=== PATIENT | male | born 1945 | race Two or more races ===

== ENCOUNTER 2016-10-13 21:41 | Emergency (ER) | payer MEDICARE ==
[~2016-10-13] VITALS: Ht 165.1 cm; Wt 70.4 kg
[~2016-10-13 21:41] MED LIST: AMOX-291 PO; ASPI-650 PO; ATOR40TA78 PO; CARB1TAB22 PO; FAMO-79 PO; TERA10CA3 PO
[2016-10-13 23:29] LABS: ASPARTATE AMINO TRANSFERASE 24 U/L (15-37); BLOOD UREA NITROGEN 12 mg/dL (7-18)
[2016-10-14 00:46] VITALS: BP 120/68
== END 2016-10-14 00:47 | disposition home or self-care (01) ==
LOC: ED 23:59
DX: R30.0 Dysuria (principal); I10 Essential (primary) hypertension; E78.5 Hyperlipidemia, unspecified; G20 Parkinson's disease; I63.9 Cerebral infarction, unspecified
CPT/HCPCS: 36415; 80053; 81001; 82962; 85025; 93005

== ENCOUNTER 2017-09-25 18:27 | Inpatient (IN) | payer MEDICARE ==
[~2017-09-25] VITALS: Ht 165.1 cm; Wt 67.0 kg
[2017-09-25 19:45] LABS: BASOPHILS # (AUTO) 0.01 x10^3/uL (0-0.1); BASOPHILS % (AUTO) 0 % (0-1); EOSINOPHILS # (AUTO) 0.23 x10^3/uL (0-0.4); EOSINOPHILS % (AUTO) 5 % (1-7); LYMPHOCYTES # (AUTO) 1.13 x10^3/uL (1-3.4); LYMPHOCYTES % (AUTO) 24 % (22-44); MD NO; MEAN CORPUSCULAR HEMOGLOBIN 34.1 pg (27.5-34.5); MEAN CORPUSCULAR HGB CONC 33.8 g/dL (33.2-36.2); MEAN CORPUSCULAR VOLUME 100.9 fL (81-97); MEAN PLATELET VOLUME 8.8 fL (7.4-10.4); MONOCYTES # (AUTO) 0.35 x10^3/uL (0.2-0.8); MONOCYTES % (AUTO) 8 % (2-9); NEUTROPHILS # (AUTO) 2.96 x10^3/uL (1.8-6.8); NEUTROPHILS % (AUTO) 63 % (42-75); PLATELET COUNT 156 x10^3/uL (130-400); RED BLOOD COUNT 3.83 x10^6/uL (4.38-5.82); RED CELL DISTRIBUTION WIDTH 12.9 % (9.4-14.8)
[2017-09-25 19:56] LABS: ALANINE AMINOTRANSFERASE 14 U/L (12-78); ALBUMIN 3.7 g/dL (3.4-5.0); ANION GAP 8 mmol/L (5-15); CALCIUM 8.4 mg/dL (8.5-10.1); CHLORIDE 104 mmol/L (98-107)
[2017-09-25] MEDS ORDERED: METHYLNALTREXONE 12 MG/0.6 ML SQ ONE ×2 (19:57→20:00)
[2017-09-25 19:59] LABS: ALKALINE PHOSPHATASE 85 U/L (45-117); BILIRUBIN,TOTAL 0.6 mg/dL (0.2-1.0); CREATININE 0.98 mg/dL (0.7-1.3); TOTAL PROTEIN 6.7 g/dL (6.4-8.2)
[2017-09-25] MEDS ORDERED: OMNIPAQUE 350 MG/ML, 100ML BOTTLE ONE (23:07)
[2017-09-26] MEDS ORDERED: ONDANSETRON 2MG/ML, 2ML IVPush PRN (00:30)
[2017-09-26] MEDS ORDERED: ACETAMINOPHEN 325 MG TABLET PO PRN (00:30)
[2017-09-26] MEDS: TERAZOSIN 5MG CAPSULE PO SCH ×3 (00:30→22:01)
[2017-09-26] MEDS: BISACODYL 10 MG SUPP PR SCH ×3 (00:45→09:03)
[2017-09-26] MEDS: ATORVASTATIN 40 MG TABLET PO SCH ×3 (01:03→22:01)
[2017-09-26] MEDS: CARBIDOPA/LEVODOPA 25 MG/100 MG TABLET PO SCH ×7 (01:03→22:01)
[2017-09-26 01:08] LABS: FOLATE LEVEL 13.8 ng/mL (3.1-17.5)
[2017-09-26 01:20] VITALS: BP 128/86
[2017-09-26] MEDS: SODIUM CHLORIDE 0.9% 1,000 ML IV SCH ×3 (01:40→22:02)
[2017-09-26] MEDS ORDERED: MELA5CAP PO (02:04)
[2017-09-26] MEDS: MELATONIN 5 MG TABLET PO SCH ×2 (03:52→22:01)
[2017-09-26 05:08] LABS: BASOPHILS # (AUTO) 0.02 x10^3/uL (0-0.1); BASOPHILS % (AUTO) 0 % (0-1); EOSINOPHILS # (AUTO) 0.17 x10^3/uL (0-0.4); EOSINOPHILS % (AUTO) 4 % (1-7); LYMPHOCYTES # (AUTO) 0.87 x10^3/uL (1-3.4); LYMPHOCYTES % (AUTO) 18 % (22-44); MD NO; MEAN CORPUSCULAR HEMOGLOBIN 33.8 pg (27.5-34.5); MEAN CORPUSCULAR HGB CONC 33.6 g/dL (33.2-36.2); MEAN CORPUSCULAR VOLUME 100.7 fL (81-97); MEAN PLATELET VOLUME 8.7 fL (7.4-10.4); MONOCYTES # (AUTO) 0.41 x10^3/uL (0.2-0.8); MONOCYTES % (AUTO) 8 % (2-9); NEUTROPHILS # (AUTO) 3.36 x10^3/uL (1.8-6.8); NEUTROPHILS % (AUTO) 70 % (42-75); PLATELET COUNT 154 x10^3/uL (130-400); RED BLOOD COUNT 3.64 x10^6/uL (4.38-5.82)
[2017-09-26 05:18] LABS: CHLORIDE 110 mmol/L (98-107)
[2017-09-26 05:33] LABS: ALANINE AMINOTRANSFERASE 9 U/L (12-78); ALBUMIN 3.3 g/dL (3.4-5.0); ALKALINE PHOSPHATASE 62 U/L (45-117); ANION GAP 7 mmol/L (5-15); BILIRUBIN,TOTAL 0.7 mg/dL (0.2-1.0); CALCIUM 8.7 mg/dL (8.5-10.1); CREATININE 0.76 mg/dL (0.7-1.3); TOTAL PROTEIN 6.1 g/dL (6.4-8.2)
[2017-09-26] MEDS: SENNA/DOCUSATE TABLET PO SCH (09:03)
[2017-09-26] MEDS: ASPIRIN 325 MG TABLET EC PO SCH (09:03)
[2017-09-26 09:06] VITALS: BP 128/79
[2017-09-26] MEDS ORDERED: ONDANSETRON ODT 4 MG ONE (12:02)
[2017-09-26 13:18] VITALS: BP 152/80
[2017-09-26 20:00] VITALS: BP 155/78
[2017-09-26] MEDS ORDERED: MELATONIN 5 MG TABLET PO SCH (21:00)
[2017-09-27] VITALS (7 sets, daily range): BP systolic 81–172; BP diastolic 41–96
[2017-09-27] MEDS: SODIUM CHLORIDE 0.9% 1,000 ML IV SCH ×3 (03:46→20:24)
[2017-09-27 05:11] LABS: BASOPHILS # (AUTO) 0.02 x10^3/uL (0-0.1); BASOPHILS % (AUTO) 0 % (0-1); EOSINOPHILS % (AUTO) 7 % (1-7); LYMPHOCYTES # (AUTO) 1.06 x10^3/uL (1-3.4); LYMPHOCYTES % (AUTO) 26 % (22-44); MD NO; MEAN CORPUSCULAR HEMOGLOBIN 34.1 pg (27.5-34.5); MEAN CORPUSCULAR HGB CONC 34.2 g/dL (33.2-36.2); MEAN CORPUSCULAR VOLUME 99.8 fL (81-97); MEAN PLATELET VOLUME 8.9 fL (7.4-10.4); MONOCYTES # (AUTO) 0.37 x10^3/uL (0.2-0.8); MONOCYTES % (AUTO) 9 % (2-9); NEUTROPHILS # (AUTO) 2.34 x10^3/uL (1.8-6.8); NEUTROPHILS % (AUTO) 57 % (42-75); PLATELET COUNT 148 x10^3/uL (130-400)
[2017-09-27] MEDS: CARBIDOPA/LEVODOPA 25 MG/100 MG TABLET PO SCH ×4 (05:13→20:21)
[2017-09-27] MEDS: ASPIRIN 325 MG TABLET EC PO SCH (05:13)
[2017-09-27 05:22] LABS: ANION GAP 5 mmol/L (5-15); CALCIUM 7.7 mg/dL (8.5-10.1); CHLORIDE 112 mmol/L (98-107); CREATININE 0.68 mg/dL (0.7-1.3)
[2017-09-27] MEDS ORDERED: hydrALAzine 20 MG/ML, 1ML IV PRN (08:30)
[2017-09-27] MEDS: BISACODYL 10 MG SUPP PR SCH (09:00)
[2017-09-27] MEDS: SENNA/DOCUSATE TABLET PO SCH (10:16)
[2017-09-27] MEDS ORDERED: SODIUM CHLORIDE 0.9%, 500ML IVBOLUS ONE (12:30)
[2017-09-27] MEDS: ENOXAPARIN 40 MG/0.4 ML SQ SCH (15:26)
[2017-09-27] MEDS ORDERED: BISACODYL 10 MG SUPP PR ONE (20:00)
[2017-09-27] MEDS: ATORVASTATIN 40 MG TABLET PO SCH (20:20)
[2017-09-27] MEDS: MELATONIN 5 MG TABLET PO SCH (20:21)
[2017-09-27] MEDS: TERAZOSIN 5MG CAPSULE PO SCH (20:21)
[2017-09-28 01:14] VITALS: BP 162/84
[2017-09-28] MEDS: SODIUM CHLORIDE 0.9% 1,000 ML IV SCH (04:46)
[2017-09-28] MEDS: CARBIDOPA/LEVODOPA 25 MG/100 MG TABLET PO SCH ×2 (04:49→12:06)
[2017-09-28] MEDS: ASPIRIN 325 MG TABLET EC PO SCH (04:49)
[2017-09-28 05:55] LABS: BASOPHILS # (AUTO) 0.03 x10^3/uL (0-0.1); BASOPHILS % (AUTO) 1 % (0-1); EOSINOPHILS # (AUTO) 0.26 x10^3/uL (0-0.4); EOSINOPHILS % (AUTO) 5 % (1-7); LYMPHOCYTES # (AUTO) 1.14 x10^3/uL (1-3.4); LYMPHOCYTES % (AUTO) 22 % (22-44); MD NO; MEAN CORPUSCULAR HEMOGLOBIN 34.1 pg (27.5-34.5); MEAN CORPUSCULAR HGB CONC 33.9 g/dL (33.2-36.2); MEAN CORPUSCULAR VOLUME 100.6 fL (81-97); MEAN PLATELET VOLUME 9.4 fL (7.4-10.4); MONOCYTES # (AUTO) 0.44 x10^3/uL (0.2-0.8); MONOCYTES % (AUTO) 8 % (2-9); NEUTROPHILS # (AUTO) 3.37 x10^3/uL (1.8-6.8); NEUTROPHILS % (AUTO) 64 % (42-75); PLATELET COUNT 163 x10^3/uL (130-400); RED BLOOD COUNT 3.81 x10^6/uL (4.38-5.82); RED CELL DISTRIBUTION WIDTH 12.8 % (9.4-14.8)
[2017-09-28 06:03] LABS: ANION GAP 8 mmol/L (5-15); CALCIUM 8.1 mg/dL (8.5-10.1); CHLORIDE 112 mmol/L (98-107)
[2017-09-28 06:05] LABS: CREATININE 0.77 mg/dL (0.7-1.3)
[2017-09-28 07:44] VITALS: BP 101/60
[2017-09-28] MEDS: BISACODYL 10 MG SUPP PR SCH (09:00)
[2017-09-28] MEDS: SENNA/DOCUSATE TABLET PO SCH (09:40)
[2017-09-28] MEDS ORDERED: TRAZODONE 50MG TABLET PO PRN (10:30)
[2017-09-28] MEDS ORDERED: BISACODYL 10 MG SUPP PR PRN (10:30)
[2017-09-28 13:59] VITALS: BP 147/78
[2017-09-28] MEDS: ENOXAPARIN 40 MG/0.4 ML SQ SCH (15:30)
[2017-09-28] MEDS ORDERED: BISA10SU65 PR (15:47)
[2017-09-28] MEDS ORDERED: SENN1TAB7 PO (15:47)
== END 2017-09-28 17:50 | disposition home or self-care (01) | DRG 394 ==
LOC: ED 23:27 → EDIP 09-26 00:09 → 4WST 09-26 00:46
PROVIDERS: ADMIT Internal Medicine; ATTEND Internal Medicine
DX: K63.89 Other specified diseases of intestine (principal); J98.11 Atelectasis; G20 Parkinson's disease; D53.9 Nutritional anemia, unspecified; N40.0 Benign prostatic hyperplasia without lower urinary tract symptoms; E78.5 Hyperlipidemia, unspecified; H93.12 Tinnitus, left ear; I10 Essential (primary) hypertension; K59.00 Constipation, unspecified; R53.81 Other malaise; F41.9 Anxiety disorder, unspecified; I69.320 Aphasia following cerebral infarction
CPT/HCPCS: 36415; 74018; 74022; 74177; 80048; 80053; 82607; 82746; 83605; 84443; 85025; 93005; 96372; 99285; J2405; Q9967; J7030; J7040

== ENCOUNTER 2017-10-21 17:29 | Emergency (ER) | payer MEDICARE ==
[~2017-10-21] VITALS: Ht 165.1 cm; Wt 69.0 kg
[~2017-10-21 17:29] MED LIST changes: +BISA10SU65 PR; +MELA5CAP PO; +SENN1TAB7 PO
[2017-10-21 18:58] LABS: BASOPHILS # (AUTO) 0.02 x10^3/uL (0-0.1); BASOPHILS % (AUTO) 1 % (0-1); EOSINOPHILS # (AUTO) 0.12 x10^3/uL (0-0.4); EOSINOPHILS % (AUTO) 3 % (1-7); LYMPHOCYTES # (AUTO) 0.83 x10^3/uL (1-3.4); LYMPHOCYTES % (AUTO) 21 % (22-44); MD NO; MEAN CORPUSCULAR HEMOGLOBIN 33.3 pg (27.5-34.5); MEAN CORPUSCULAR HGB CONC 33.3 g/dL (33.2-36.2); MEAN PLATELET VOLUME 8.9 fL (7.4-10.4); MONOCYTES # (AUTO) 0.35 x10^3/uL (0.2-0.8); MONOCYTES % (AUTO) 9 % (2-9); NEUTROPHILS # (AUTO) 2.65 x10^3/uL (1.8-6.8); NEUTROPHILS % (AUTO) 67 % (42-75); PLATELET COUNT 150 x10^3/uL (130-400); RED BLOOD COUNT 3.83 x10^6/uL (4.38-5.82); RED CELL DISTRIBUTION WIDTH 12.8 % (9.4-14.8)
[2017-10-21 19:02] LABS: CHLORIDE 107 mmol/L (98-107)
[2017-10-21 19:03] LABS: ALANINE AMINOTRANSFERASE 13 U/L (12-78); ALBUMIN 3.6 g/dL (3.4-5.0); ANION GAP 6 mmol/L (5-15); CALCIUM 8.3 mg/dL (8.5-10.1); CREATININE 1.04 mg/dL (0.7-1.3)
[2017-10-21 19:05] LABS: ALKALINE PHOSPHATASE 80 U/L (45-117); BILIRUBIN,TOTAL 0.9 mg/dL (0.2-1.0); TOTAL PROTEIN 6.6 g/dL (6.4-8.2)
[2017-10-21 20:15] LABS: MICROSCOPIC AUTO
[2017-10-21 20:17] LABS: CULTURE INDICATED? YES
[2017-10-21 21:32] VITALS: BP 148/72
== END 2017-10-21 21:35 | disposition home or self-care (01) ==
LOC: ED 19:06
DX: M51.36 Other intervertebral disc degeneration, lumbar region (principal); K59.00 Constipation, unspecified; Z86.73 Personal history of transient ischemic attack (TIA), and cerebral infarction without residual deficits; Z88.1 Allergy status to other antibiotic agents; Z88.8 Allergy status to other drugs, medicaments and biological substances
CPT/HCPCS: 36415; 72110; 74022; 80053; 81001; 85025; 87086; 93005; 99285

== ENCOUNTER 2017-10-23 17:24 | Emergency (ER) | payer MEDICARE ==
[~2017-10-23] VITALS: Ht 152.4 cm; Wt 69.3 kg
[2017-10-23 18:55] LABS: BASOPHILS # (AUTO) 0.02 x10^3/uL (0-0.1); BASOPHILS % (AUTO) 0 % (0-1); EOSINOPHILS # (AUTO) 0.12 x10^3/uL (0-0.4); EOSINOPHILS % (AUTO) 2 % (1-7); LYMPHOCYTES # (AUTO) 1.07 x10^3/uL (1-3.4); LYMPHOCYTES % (AUTO) 20 % (22-44); MD NO; MEAN CORPUSCULAR HEMOGLOBIN 33.7 pg (27.5-34.5); MEAN CORPUSCULAR HGB CONC 33.5 g/dL (33.2-36.2); MEAN CORPUSCULAR VOLUME 100.4 fL (81-97); MEAN PLATELET VOLUME 9.2 fL (7.4-10.4); MONOCYTES # (AUTO) 0.44 x10^3/uL (0.2-0.8); MONOCYTES % (AUTO) 8 % (2-9); NEUTROPHILS # (AUTO) 3.65 x10^3/uL (1.8-6.8); NEUTROPHILS % (AUTO) 69 % (42-75); PLATELET COUNT 163 x10^3/uL (130-400); RED BLOOD COUNT 3.98 x10^6/uL (4.38-5.82); RED CELL DISTRIBUTION WIDTH 12.9 % (9.4-14.8)
[2017-10-23 19:03] LABS: ALANINE AMINOTRANSFERASE 15 U/L (12-78); ANION GAP 8 mmol/L (5-15); CALCIUM 8.7 mg/dL (8.5-10.1); CHLORIDE 108 mmol/L (98-107); CREATININE 0.88 mg/dL (0.7-1.3)
[2017-10-23 19:06] LABS: ALKALINE PHOSPHATASE 90 U/L (45-117); BILIRUBIN,TOTAL 1.1 mg/dL (0.2-1.0); TOTAL PROTEIN 7.4 g/dL (6.4-8.2)
[2017-10-23 20:54] VITALS: BP 136/82
== END 2017-10-23 20:57 | disposition home or self-care (01) ==
LOC: ED 18:36
DX: M47.9 Spondylosis, unspecified (principal); M47.896 Other spondylosis, lumbar region; K59.00 Constipation, unspecified; K21.9 Gastro-esophageal reflux disease without esophagitis; I10 Essential (primary) hypertension; E11.9 Type 2 diabetes mellitus without complications; Z86.73 Personal history of transient ischemic attack (TIA), and cerebral infarction without residual deficits; E78.5 Hyperlipidemia, unspecified
CPT/HCPCS: 36415; 74021; 80053; 85025; 99285

== ENCOUNTER 2018-03-23 18:01 | Inpatient (IN) | payer MEDICARE ==
[~2018-03-23] VITALS: Ht 165.1 cm; Wt 66.1 kg
[~2018-03-23 18:01] MED LIST changes: -SENN1TAB7 PO; +SENN1TAB8 PO
[2018-03-23] MEDS ORDERED: ASPI-496 PO (18:44)
[2018-03-23 19:50] LABS: BASOPHILS # (AUTO) 0.01 x10^3/uL (0-0.1); BASOPHILS % (AUTO) 0 % (0-1); EOSINOPHILS # (AUTO) 0.05 x10^3/uL (0-0.4); EOSINOPHILS % (AUTO) 1 % (1-7); LYMPHOCYTES # (AUTO) 1.08 x10^3/uL (1-3.4); LYMPHOCYTES % (AUTO) 30 % (22-44); MD NO; MEAN CORPUSCULAR HEMOGLOBIN 34.2 pg (27.5-34.5); MEAN CORPUSCULAR VOLUME 100.6 fL (81-97); MEAN PLATELET VOLUME 8.5 fL (7.4-10.4); MONOCYTES # (AUTO) 0.34 x10^3/uL (0.2-0.8); MONOCYTES % (AUTO) 10 % (2-9); NEUTROPHILS % (AUTO) 59 % (42-75); PLATELET COUNT 153 x10^3/uL (130-400); RED BLOOD COUNT 4.06 x10^6/uL (4.38-5.82); RED CELL DISTRIBUTION WIDTH 12.9 % (9.4-14.8)
[2018-03-23] MEDS ORDERED: SODIUM CHLORIDE FLUSH 10ML SYR IVF ONE (20:00)
[2018-03-23 20:03] LABS: ALANINE AMINOTRANSFERASE 15 U/L (12-78); ANION GAP 8 mmol/L (5-15); CALCIUM 8.8 mg/dL (8.5-10.1); CHLORIDE 106 mmol/L (98-107); CREATININE 0.83 mg/dL (0.7-1.3)
[2018-03-23 20:07] LABS: ALKALINE PHOSPHATASE 103 U/L (45-117); BILIRUBIN,TOTAL 0.8 mg/dL (0.2-1.0); TOTAL PROTEIN 7.5 g/dL (6.4-8.2); TROPONIN I < 0.015 ng/mL (0.000-0.045)
[2018-03-23] MEDS ORDERED: POLYETHYLENE GLYCOL 17 GM PACKET PO PRN (22:00)
[2018-03-23] MEDS ORDERED: BISACODYL 10 MG SUPP PR PRN (22:00)
[2018-03-23] MEDS: HEPARIN 5,000 UNITS/ML, 1ML SQ SCH (22:00)
[2018-03-23] MEDS ORDERED: NITROGLYCERIN 0.4 MG BOTTLE (25 TABS) SL PRN (22:00)
[2018-03-23] MEDS ORDERED: ACETAMINOPHEN 325 MG TABLET PO PRN (22:00)
[2018-03-23 22:20] LABS: FREE T4 (FREE THYROXINE) 0.77 ng/dL (0.76-1.46)
[2018-03-23 22:21] LABS: FOLATE LEVEL > 20.0 ng/mL (3.1-17.5)
[2018-03-23] MEDS: ASPIRIN 81 MG TABLET CHEW PO ONE ×2 (22:38→23:03)
[2018-03-23] MEDS: TERAZOSIN 5MG CAPSULE PO SCH (22:38)
[2018-03-23] MEDS: MELATONIN 5 MG TABLET PO SCH ×2 (22:38→23:04)
[2018-03-23] MEDS: ATORVASTATIN 40 MG TABLET PO SCH (22:38)
[2018-03-23 22:49] VITALS: BP 164/83
[2018-03-23] MEDS: SODIUM CHLORIDE FLUSH 10ML SYR IVF SCH (23:02)
[2018-03-23 23:28] VITALS: BP 154/84
[2018-03-23] MEDS: CARBIDOPA/LEVODOPA 25 MG/100 MG TABLET PO SCH (23:59)
[2018-03-24 00:48] VITALS: BP 106/70
[2018-03-24 02:11] LABS: BASOPHILS # (AUTO) 0.02 x10^3/uL (0-0.1); BASOPHILS % (AUTO) 1 % (0-1); EOSINOPHILS # (AUTO) 0.05 x10^3/uL (0-0.4); EOSINOPHILS % (AUTO) 2 % (1-7); LYMPHOCYTES % (AUTO) 28 % (22-44); MD NO; MEAN CORPUSCULAR HEMOGLOBIN 34.3 pg (27.5-34.5); MEAN CORPUSCULAR HGB CONC 34.5 g/dL (33.2-36.2); MEAN CORPUSCULAR VOLUME 99.4 fL (81-97); MEAN PLATELET VOLUME 8.8 fL (7.4-10.4); MONOCYTES # (AUTO) 0.37 x10^3/uL (0.2-0.8); MONOCYTES % (AUTO) 11 % (2-9); NEUTROPHILS # (AUTO) 1.87 x10^3/uL (1.8-6.8); NEUTROPHILS % (AUTO) 58 % (42-75); PLATELET COUNT 148 x10^3/uL (130-400); RED BLOOD COUNT 3.47 x10^6/uL (4.38-5.82); RED CELL DISTRIBUTION WIDTH 12.8 % (9.4-14.8)
[2018-03-24 02:20] LABS: ALBUMIN 3.2 g/dL (3.4-5.0); ANION GAP 6 mmol/L (5-15); CALCIUM 8.2 mg/dL (8.5-10.1); CHLORIDE 107 mmol/L (98-107)
[2018-03-24 02:24] LABS: ALANINE AMINOTRANSFERASE 14 U/L (12-78); ALKALINE PHOSPHATASE 77 U/L (45-117); BILIRUBIN,TOTAL 0.7 mg/dL (0.2-1.0); CHOL/HDL RATIO 1.6; CHOLESTEROL, TOTAL 100 mg/dL (140-239); CREATININE 0.73 mg/dL (0.7-1.3); HDL CHOL % 62 % (26-37); HDL CHOLESTEROL (DIRECT) 62 mg/dL (40-60); LDL CHOLESTEROL,CALCULATED 30 mg/dL (54-169); LDL/HDL RATIO 0.5 (0.5-3.0); TOTAL PROTEIN 6.2 g/dL (6.4-8.2); TRIGLYCERIDES 41 mg/dL (50-200); VLDL CHOLESTEROL 8 mg/dL (0-25)
[2018-03-24 02:26] LABS: TROPONIN I < 0.015 ng/mL (0.000-0.045)
[2018-03-24] MEDS: HEPARIN 5,000 UNITS/ML, 1ML SQ SCH ×3 (06:00→22:00)
[2018-03-24] MEDS: CARBIDOPA/LEVODOPA 25 MG/100 MG TABLET PO SCH ×3 (06:03→17:53)
[2018-03-24] MEDS: ASPIRIN 81 MG TABLET EC PO SCH (06:03)
[2018-03-24 07:15] VITALS: BP 102/63
[2018-03-24 08:28] LABS: TROPONIN I < 0.015 ng/mL (0.000-0.045)
[2018-03-24] MEDS ORDERED: REGADENOSON 0.4 MG/5 ML SYRINGE ONE (08:46)
[2018-03-24] MEDS ORDERED: SENNA/DOCUSATE TABLET PO SCH (09:00)
[2018-03-24] MEDS: SODIUM CHLORIDE FLUSH 10ML SYR IVF SCH ×2 (10:00→21:31)
[2018-03-24] MEDS: SENNA/DOCUSATE TABLET PO SCH (10:41)
[2018-03-24] MEDS ORDERED: SODIUM CHLORIDE 0.9% 1,000 ML IV SCH (12:00)
[2018-03-24 13:04] VITALS: BP 110/68
[2018-03-24] MEDS: ONDANSETRON ODT 4 MG PO PRN (14:17)
[2018-03-24] MEDS: morphine SULFATE 10 MG/ML, 1ML IVPush PRN (14:45)
[2018-03-24 15:58] VITALS: BP 170/88
[2018-03-24] MEDS ORDERED: hydrALAzine 20 MG/ML, 1ML IV PRN (17:00)
[2018-03-24 20:10] VITALS: BP 128/78
[2018-03-24] MEDS: TERAZOSIN 5MG CAPSULE PO SCH (21:31)
[2018-03-24] MEDS: ATORVASTATIN 40 MG TABLET PO SCH (21:31)
[2018-03-25] VITALS (8 sets, daily range): BP systolic 92–161; BP diastolic 54–83
[2018-03-25] MEDS: MELATONIN 5 MG TABLET PO SCH ×2 (00:03→22:31)
[2018-03-25] MEDS: CARBIDOPA/LEVODOPA 25 MG/100 MG TABLET PO SCH ×5 (00:03→22:31)
[2018-03-25 04:51] LABS: BASOPHILS # (AUTO) 0.02 x10^3/uL (0-0.1); BASOPHILS % (AUTO) 1 % (0-1); EOSINOPHILS # (AUTO) 0.08 x10^3/uL (0-0.4); EOSINOPHILS % (AUTO) 2 % (1-7); LYMPHOCYTES # (AUTO) 0.99 x10^3/uL (1-3.4); LYMPHOCYTES % (AUTO) 28 % (22-44); MD NO; MEAN CORPUSCULAR HEMOGLOBIN 34.5 pg (27.5-34.5); MEAN CORPUSCULAR HGB CONC 34.4 g/dL (33.2-36.2); MEAN CORPUSCULAR VOLUME 100.3 fL (81-97); MONOCYTES # (AUTO) 0.36 x10^3/uL (0.2-0.8); MONOCYTES % (AUTO) 10 % (2-9); NEUTROPHILS % (AUTO) 59 % (42-75); PLATELET COUNT 144 x10^3/uL (130-400); RED BLOOD COUNT 3.66 x10^6/uL (4.38-5.82); RED CELL DISTRIBUTION WIDTH 12.9 % (9.4-14.8)
[2018-03-25 04:58] LABS: ALBUMIN 3.5 g/dL (3.4-5.0); ANION GAP 7 mmol/L (5-15); CALCIUM 8.5 mg/dL (8.5-10.1); CHLORIDE 108 mmol/L (98-107)
[2018-03-25 04:59] LABS: CREATININE 0.76 mg/dL (0.7-1.3)
[2018-03-25] MEDS: ASPIRIN 81 MG TABLET EC PO SCH (06:00)
[2018-03-25] MEDS: HEPARIN 5,000 UNITS/ML, 1ML SQ SCH ×3 (06:01→20:33)
[2018-03-25] MEDS: SENNA/DOCUSATE TABLET PO SCH (08:25)
[2018-03-25] MEDS: SODIUM CHLORIDE FLUSH 10ML SYR IVF SCH ×2 (08:54→20:48)
[2018-03-25] MEDS: SODIUM CHLORIDE 0.9% 1,000 ML IV SCH ×2 (10:00→20:48)
[2018-03-25] MEDS: ONDANSETRON ODT 4 MG PO PRN (11:46)
[2018-03-25] MEDS: BISACODYL 10 MG SUPP PR PRN (16:36)
[2018-03-25] MEDS: TERAZOSIN 5MG CAPSULE PO SCH (20:49)
[2018-03-25] MEDS: ATORVASTATIN 40 MG TABLET PO SCH (20:49)
[2018-03-25] MEDS: LACTULOSE 20 GM/30 ML UDC PO SCH (20:49)
[2018-03-26] VITALS (7 sets, daily range): BP systolic 86–143; BP diastolic 53–84
[2018-03-26] MEDS: CARBIDOPA/LEVODOPA 25 MG/100 MG TABLET PO SCH ×5 (05:19→21:44)
[2018-03-26] MEDS: ASPIRIN 81 MG TABLET EC PO SCH (05:19)
[2018-03-26] MEDS: SODIUM CHLORIDE 0.9% 1,000 ML IV SCH ×3 (05:19→21:45)
[2018-03-26] MEDS: HEPARIN 5,000 UNITS/ML, 1ML SQ SCH ×3 (05:19→21:02)
[2018-03-26 05:39] LABS: BASOPHILS # (AUTO) 0.02 x10^3/uL (0-0.1); BASOPHILS % (AUTO) 1 % (0-1); EOSINOPHILS % (AUTO) 3 % (1-7); LYMPHOCYTES # (AUTO) 0.89 x10^3/uL (1-3.4); LYMPHOCYTES % (AUTO) 28 % (22-44); MD NO; MEAN CORPUSCULAR VOLUME 99.9 fL (81-97); MEAN PLATELET VOLUME 8.8 fL (7.4-10.4); MONOCYTES # (AUTO) 0.32 x10^3/uL (0.2-0.8); MONOCYTES % (AUTO) 10 % (2-9); NEUTROPHILS # (AUTO) 1.84 x10^3/uL (1.8-6.8); NEUTROPHILS % (AUTO) 58 % (42-75); PLATELET COUNT 147 x10^3/uL (130-400); RED BLOOD COUNT 3.59 x10^6/uL (4.38-5.82); RED CELL DISTRIBUTION WIDTH 12.9 % (9.4-14.8)
[2018-03-26 05:50] LABS: ALBUMIN 3.3 g/dL (3.4-5.0); ANION GAP 8 mmol/L (5-15); CHLORIDE 110 mmol/L (98-107)
[2018-03-26 05:51] LABS: CREATININE 0.69 mg/dL (0.7-1.3)
[2018-03-26] MEDS: morphine SULFATE 10 MG/ML, 1ML IVPush PRN (08:21)
[2018-03-26] MEDS: SENNA/DOCUSATE TABLET PO SCH (08:21)
[2018-03-26] MEDS: SODIUM CHLORIDE FLUSH 10ML SYR IVF SCH ×2 (08:21→21:45)
[2018-03-26] MEDS: LACTULOSE 20 GM/30 ML UDC PO SCH ×3 (08:21→21:51)
[2018-03-26] MEDS ORDERED: BISACODYL 10 MG SUPP PR PRN (08:30)
[2018-03-26] MEDS: ONDANSETRON ODT 4 MG PO PRN (11:28)
[2018-03-26] MEDS ORDERED: OMNIPAQUE 350 MG/ML, 100ML BOTTLE ONE (13:12)
[2018-03-26] MEDS: BISACODYL 10 MG SUPP PR PRN (16:49)
[2018-03-26] MEDS: MELATONIN 5 MG TABLET PO SCH ×3 (21:02→21:55)
[2018-03-26] MEDS: ATORVASTATIN 40 MG TABLET PO SCH ×2 (21:02→21:44)
[2018-03-27] VITALS (7 sets, daily range): BP systolic 102–154; BP diastolic 60–82
[2018-03-27] MEDS: CARBIDOPA/LEVODOPA 25 MG/100 MG TABLET PO SCH ×2 (02:58→11:59)
[2018-03-27] MEDS: HEPARIN 5,000 UNITS/ML, 1ML SQ SCH ×2 (05:03→14:00)
[2018-03-27] MEDS: ASPIRIN 81 MG TABLET EC PO SCH (05:03)
[2018-03-27] MEDS: SODIUM CHLORIDE 0.9% 1,000 ML IV SCH ×2 (05:03→13:00)
[2018-03-27] MEDS ORDERED: LACTULOSE 20 GM/30 ML UDC PO SCH (09:00)
[2018-03-27] MEDS: SODIUM CHLORIDE FLUSH 10ML SYR IVF SCH (09:00)
[2018-03-27] MEDS: SENNA/DOCUSATE TABLET PO SCH (09:21)
[2018-03-27] MEDS ORDERED: POLY17PO5 PO (15:25)
== END 2018-03-27 17:10 | disposition home or self-care (01) | DRG 303 ==
LOC: ED 20:59 → EDIP 21:13 → 5SO 21:55 → 4WST 03-24 20:05 → DCLOUNGE 03-27 17:02
PROVIDERS: ADMIT Internal Medicine; ATTEND Internal Medicine
DX: I25.10 Atherosclerotic heart disease of native coronary artery without angina pectoris (principal); R00.1 Bradycardia, unspecified; J42 Unspecified chronic bronchitis; G20 Parkinson's disease; D64.9 Anemia, unspecified; D75.89 Other specified diseases of blood and blood-forming organs; E11.9 Type 2 diabetes mellitus without complications; E78.5 Hyperlipidemia, unspecified; H53.2 Diplopia; I10 Essential (primary) hypertension; I95.1 Orthostatic hypotension; K21.9 Gastro-esophageal reflux disease without esophagitis; K59.00 Constipation, unspecified; N40.0 Benign prostatic hyperplasia without lower urinary tract symptoms; I69.320 Aphasia following cerebral infarction; Z79.82 Long term (current) use of aspirin; Z79.899 Other long term (current) drug therapy; Z87.81 Personal history of (healed) traumatic fracture; Z88.1 Allergy status to other antibiotic agents; Z88.8 Allergy status to other drugs, medicaments and biological substances
CPT/HCPCS: 36415; 70450; 70551; 71045; 72125; 74177; 78452; 80048; 80053; 80061; 82040; 82607; 82746; 82962; 83735; 83880; 84439; 84443; 84484; 85025; 93005; 93017; 93306; 99285; G0378; J2785; Q0162; Q9967; A9502; C9898; J2270; J7030

== ENCOUNTER 2018-05-17 17:58 | Emergency (ER) | payer MEDICARE ==
[~2018-05-17] VITALS: Ht 165.1 cm; Wt 67.9 kg
[~2018-05-17 17:58] MED LIST changes: +ASPI-496 PO; +POLY17PO5 PO
[2018-05-17 18:54] LABS: BASOPHILS # (AUTO) 0.02 x10^3/uL (0-0.1); BASOPHILS % (AUTO) 1 % (0-1); EOSINOPHILS # (AUTO) 0.06 x10^3/uL (0-0.4); EOSINOPHILS % (AUTO) 2 % (1-7); LYMPHOCYTES # (AUTO) 1.18 x10^3/uL (1-3.4); LYMPHOCYTES % (AUTO) 30 % (22-44); MD NO; MEAN CORPUSCULAR HEMOGLOBIN 34.1 pg (27.5-34.5); MEAN CORPUSCULAR VOLUME 100.2 fL (81-97); MEAN PLATELET VOLUME 8.7 fL (7.4-10.4); MONOCYTES % (AUTO) 8 % (2-9); NEUTROPHILS # (AUTO) 2.42 x10^3/uL (1.8-6.8); NEUTROPHILS % (AUTO) 61 % (42-75); PLATELET COUNT 153 x10^3/uL (130-400); RED BLOOD COUNT 3.87 x10^6/uL (4.38-5.82)
[2018-05-17 19:08] LABS: ALBUMIN 3.7 g/dL (3.4-5.0); ANION GAP 6 mmol/L (5-15); CALCIUM 8.5 mg/dL (8.5-10.1); CHLORIDE 105 mmol/L (98-107); CREATININE 0.97 mg/dL (0.7-1.3)
--- NOTE | 2018-05-17 19:10 | NUR ---
ERP TO BEDSIDE AND AWAITING ORDERS.
--- NOTE | 2018-05-17 19:15 | NUR ---
PT MEDICATED ORDERED AND AWAITING HEAD CT SCAN.
[2018-05-17] MEDS ORDERED: IBUPROFEN 200 MG TABLET ONE (19:19)
[2018-05-17] MEDS ORDERED: IBUPROFEN 200 MG TABLET PO ONE (19:30)
--- NOTE | 2018-05-17 20:15 | NUR ---
PT ASKING FOR FOOD AND WALKING AROUND ROOM. PT IS UP FOR RECHECK.
[2018-05-17 21:22] VITALS: BP 141/83
== END 2018-05-17 21:24 | disposition home or self-care (01) ==
LOC: ED 19:03
DX: G43.C0 Periodic headache syndromes in child or adult, not intractable (principal); R00.2 Palpitations; E78.5 Hyperlipidemia, unspecified; I10 Essential (primary) hypertension; E11.9 Type 2 diabetes mellitus without complications; Z72.9 Problem related to lifestyle, unspecified; Z86.73 Personal history of transient ischemic attack (TIA), and cerebral infarction without residual deficits
CPT/HCPCS: 36415; 70450; 71045; 80048; 82040; 85025; 93005; 99284

== ENCOUNTER 2019-10-23 14:58 | Emergency (ER) | payer MEDICARE ==
[~2019-10-23] VITALS: Ht 165.1 cm; Wt 66.0 kg
[~2019-10-23 14:58] MED LIST changes: +SENN-177 PO; -SENN1TAB8 PO
--- NOTE | 2019-10-23 15:37 | NUR ---
FILTERER: PT TO ROOM FROM LOBBY, GAIT SLOW AND STEADY.
--- NOTE | 2019-10-23 15:53 | NUR ---
PT C/O MID ABD PAIN X2 DAYS. ALSO NAUSEA/DIARRHEA TODAY. STATES "MY TOES ARE CURLING OVER AND MY TOENAILS ARE HITTING THE GROUND WHEN I WALK, AND I HAVE FUNGUS IN MY TOENAILS." BP 88/42 AT THIS TIME, PT ASYMPTOMATIC, LYING IN GURNEY. WILL REASSESS.
--- NOTE | 2019-10-23 17:11 | NUR ---
PT C/O INCREASED PAIN AND STATES HE WANTS SOMETHING TO EAT. ALSO CONCERNED ABOUT TAKING HIS HOME MEDS. AWAITING ERP. VSS.
--- NOTE | 2019-10-23 17:21 | NUR ---
ERP AT NOW.
[2019-10-23 17:49] LABS: BASOPHILS # (AUTO) 0.03 x10^3/uL (0-0.1); BASOPHILS % (AUTO) 1 % (0-1); EOSINOPHILS # (AUTO) 0.09 x10^3/uL (0-0.4); EOSINOPHILS % (AUTO) 2 % (1-7); LYMPHOCYTES # (AUTO) 1.18 x10^3/uL (1-3.4); LYMPHOCYTES % (AUTO) 26 % (22-44); MD NO; MEAN CORPUSCULAR HEMOGLOBIN 33.9 pg (27.5-34.5); MEAN CORPUSCULAR HGB CONC 33.3 g/dL (33.2-36.2); MEAN CORPUSCULAR VOLUME 101.9 fL (81-97); MEAN PLATELET VOLUME 8.8 fL (7.4-10.4); MONOCYTES # (AUTO) 0.32 x10^3/uL (0.2-0.8); MONOCYTES % (AUTO) 7 % (2-9); NEUTROPHILS # (AUTO) 2.88 x10^3/uL (1.8-6.8); NEUTROPHILS % (AUTO) 64 % (42-75); PLATELET COUNT 157 x10^3/uL (130-400); RED CELL DISTRIBUTION WIDTH 13.2 % (9.4-14.8)
--- NOTE | 2019-10-23 18:01 | NUR ---
PT DEMANDING WATER, STATES, "I'M DYING OF THIRST!" ASKING REPETITIVE QUESTIONS ABOUT "WHY IS EVERYTHING TAKING SO LONG?" RV'WD POC WITH PT. ALL QUESTIONS ANSWERED.
[2019-10-23 18:02] LABS: ALBUMIN 3.5 g/dL (3.4-5.0); ANION GAP 5 mmol/L (5-15); CALCIUM 8.7 mg/dL (8.5-10.1); CHLORIDE 107 mmol/L (98-107)
[2019-10-23 18:04] LABS: ALANINE AMINOTRANSFERASE 8 U/L (12-78); ALKALINE PHOSPHATASE 83 U/L (45-117); BILIRUBIN,TOTAL 1.1 mg/dL (0.2-1.0); CREATININE 0.87 mg/dL (0.7-1.3)
[2019-10-23 18:16] LABS: MICROSCOPIC NOT IND
[2019-10-23] MEDS ORDERED: OMNIPAQUE 350 MG/ML, 100ML BOTTLE ONE (18:47)
--- NOTE | 2019-10-23 18:51 | NUR ---
PT RETURNED FROM CT. CONTINUES TO DEMAND WATER CONSTANTLY.
[2019-10-23 19:49] VITALS: BP 135/77
--- NOTE | 2019-10-23 19:49 | NUR ---
ERP WAS AT BS FOR RECHECK.
--- NOTE | 2019-10-23 20:40 | NUR ---
PT SPOKE WITH ERP ABOUT HIS SYMPTOMS PRIOR TO DISCHARGE. D/C INSTRUCTIONS, MEDS & F/U APPT'S RV'WD WITH PT, HE VERBALIZES UNDERSTANDING. RX GIVEN X2. AMBULATED OUT OF ED WITHOUT DIFFICULTY.
== END 2019-10-23 20:52 | disposition home or self-care (01) ==
LOC: ED 19:23
DX: R19.7 Diarrhea, unspecified (principal); G20 Parkinson's disease; R33.8 Other retention of urine; R10.12 Left upper quadrant pain; R10.32 Left lower quadrant pain; I10 Essential (primary) hypertension; E11.9 Type 2 diabetes mellitus without complications; K21.9 Gastro-esophageal reflux disease without esophagitis; E78.5 Hyperlipidemia, unspecified; Z86.73 Personal history of transient ischemic attack (TIA), and cerebral infarction without residual deficits
CPT/HCPCS: 36415; 74177; 80053; 81003; 83690; 85025; 99285; Q9967

== ENCOUNTER 2020-01-22 16:26 | Emergency (ER) | payer MEDICARE ==
[~2020-01-22] VITALS: Ht 165.1 cm; Wt 66.4 kg
--- NOTE | 2020-01-22 16:51 | NUR ---
PT PROVIDED URINE SAMPLE. UA ORDERED PER PROTOCOL AND SENT TO LAB. PT C/O LLQ ABD PAIN AND LEFT TESTICULAR PAIN. PT C/O FREQUENT URINATION AND THIRST. HX: BORDERLINE DM2.
[2020-01-22 17:13] LABS: MICROSCOPIC NOT IND
--- NOTE | 2020-01-22 17:50 | NUR ---
AT BEDSIDE FOR ASSESSMENT.
[2020-01-22] MEDS ORDERED: SODIUM CHLORIDE FLUSH 10ML SYR IVF ONE (18:00)
[2020-01-22 18:16] LABS: BASOPHILS # (AUTO) 0.02 x10^3/uL (0-0.1); BASOPHILS % (AUTO) 1 % (0-1); EOSINOPHILS # (AUTO) 0.12 x10^3/uL (0-0.4); EOSINOPHILS % (AUTO) 3 % (1-7); LYMPHOCYTES # (AUTO) 1.09 x10^3/uL (1-3.4); LYMPHOCYTES % (AUTO) 26 % (22-44); MD NO; MEAN CORPUSCULAR HEMOGLOBIN 33.5 pg (27.5-34.5); MEAN CORPUSCULAR HGB CONC 32.6 g/dL (33.2-36.2); MEAN CORPUSCULAR VOLUME 102.7 fL (81-97); MEAN PLATELET VOLUME 8.7 fL (7.4-10.4); MONOCYTES # (AUTO) 0.31 x10^3/uL (0.2-0.8); MONOCYTES % (AUTO) 8 % (2-9); NEUTROPHILS # (AUTO) 2.62 x10^3/uL (1.8-6.8); NEUTROPHILS % (AUTO) 63 % (42-75); PLATELET COUNT 166 x10^3/uL (130-400); RED BLOOD COUNT 4.21 x10^6/uL (4.38-5.82); RED CELL DISTRIBUTION WIDTH 13.2 % (9.4-14.8)
[2020-01-22 18:23] VITALS: BP 163/85
[2020-01-22 18:28] LABS: ALANINE AMINOTRANSFERASE 17 U/L (12-78); ALBUMIN 3.7 g/dL (3.4-5.0); ANION GAP 6 mmol/L (5-15); CALCIUM 8.9 mg/dL (8.5-10.1); CHLORIDE 108 mmol/L (98-107); CREATININE 0.82 mg/dL (0.7-1.3)
[2020-01-22 18:30] LABS: ALKALINE PHOSPHATASE 111 U/L (45-117); BILIRUBIN,TOTAL 0.7 mg/dL (0.2-1.0); TOTAL PROTEIN 7.1 g/dL (6.4-8.2)
--- NOTE | 2020-01-22 19:03 | NUR ---
PT REFUSED CT WITH CONTRAST. PT REQUESTING CT WITHOUT CONTRAST. MD TO BE NOTIFIED.
--- NOTE | 2020-01-22 20:06 | NUR ---
ALL RESULTS ARE BACK AT THIS TIME. CHART UP FOR RECHECK.
== END 2020-01-22 20:39 | disposition home or self-care (01) ==
LOC: ED 19:42
DX: R10.32 Left lower quadrant pain (principal); I49.3 Ventricular premature depolarization; I48.91 Unspecified atrial fibrillation; I21.9 Acute myocardial infarction, unspecified; N50.812 Left testicular pain; I10 Essential (primary) hypertension; E11.9 Type 2 diabetes mellitus without complications; E78.5 Hyperlipidemia, unspecified; K21.9 Gastro-esophageal reflux disease without esophagitis; G20 Parkinson's disease; Z86.73 Personal history of transient ischemic attack (TIA), and cerebral infarction without residual deficits
CPT/HCPCS: 36415; 74176; 80053; 81003; 85025; 93005; 99285